=== PATIENT | female | born 1995 | race African-American/Black ===

== ENCOUNTER 2020-01-30 11:36 | Day surgery (SDC) | payer MEDICAID, OTHER ==
[~2020-01-30] VITALS: Ht 160 cm; Wt 59.0 kg
[2020-01-30] VITALS (13 sets, daily range): BP systolic 107–151; BP diastolic 59–94
[~2020-01-30 11:36] MED LIST: NKM
[2020-01-30] MEDS ORDERED: Morphine Sulfate 4mg/ml Inj (IV USE ONLY) IVP ONE ×3 (11:45→16:00)
[2020-01-30] MEDS ORDERED: LORazepam Inj 2mg/ml 1ml IV ONE (12:00)
[2020-01-30 12:06] LABS: BASOPHILS % (AUTO) 1.7 % (0.0-2.0); EOSINOPHILS % (AUTO) 1.5 % (0.0-3.0); HEMATOCRIT 39.8 % (37.0-47.0); HEMOGLOBIN 12.7 G/DL (12.0-16.0); LYMPHOCYTES % (AUTO) 23.3 % (20.0-45.0); MEAN CORPUSCULAR VOLUME 94 FL (80-99); MONOCYTES % (AUTO) 7.2 % (1.0-10.0); NEUTROPHILS % (AUTO) 66.4 % (45.0-75.0); PLATELET COUNT 190 K/UL (150-450); RED BLOOD COUNT 4.24 M/UL (4.20-5.40); RED CELL DISTRIBUTION WIDTH 14.2 % (11.6-14.8); WHITE BLOOD COUNT 10.1 K/UL (4.8-10.8)
[2020-01-30 12:20] LABS: ANION GAP 13 mmol/L (5-15); BLOOD UREA NITROGEN 11 mg/dL (7-18); CALCIUM 9.4 MG/DL (8.5-10.1); CARBON DIOXIDE 21 MMOL/L (21-32); CHLORIDE 104 MMOL/L (98-107); POTASSIUM 4.2 MMOL/L (3.5-5.1); SODIUM 138 MMOL/L (136-145)
[2020-01-30 12:24] LABS: ALANINE AMINOTRANSFERASE 13 U/L (12-78); ALKALINE PHOSPHATASE 58 U/L (46-116); ASPARTATE AMINO TRANSFERASE 30 U/L (15-37); BILIRUBIN,TOTAL 0.4 MG/DL (0.2-1.0)
[2020-01-30] MEDS ORDERED: Omnipaque-300 100ml vial INJ PRN (13:00)
--- NOTE | 2020-01-30 13:23 | Emergency Room Report ---
History of Present Illness General Chief Complaint: Abdominal Pain Source: Patient Present Illness HPI 24-year-old female, very poor historian, here with abdominal pain and vaginal bleeding. Patient says that she had a positive test 1 week ago and says that today "something came out of my vagina. It is bleeding." Was not able to tell me how much blood. When the patient arrived in the emergency department she was running back and forth screaming "it is coming! I am bleeding!" Patient normal vital signs but said multiple times that she feels as though she is going to faint. She vomited one time on arrival nonbilious nonbloody. Denies headaches, vision changes, fevers, chills, chest pain, palpitations, shortness of breath. Allergies: Coded Allergies: No Known Allergies (Unverified , 03/10/14) COVID-19 Screening Contact w/high risk pt: No Experienced COVID-19 symptoms?: No COVID-19 Testing performed BEEF SKINNER: No Patient History Now: No Nursing Documentation-[facility] Past Medical History: No Stated History Hx Asthma: Yes Physical Exam Vital Signs Date Time Temp Pulse Resp B/P (MAP) Pulse Ox O2 Delivery O2 Flow Rate FiO2 01/30/20 11:37 97.5 82 18 151/82 (105) 98 Room Air Sp02 EP Interpretation: reviewed, normal General Appearance: alert, GCS 15, non-toxic, severe distress, other - In severe distress. Screaming, agitated, abusive toward staff and cursing Head: normocephalic, atraumatic Eyes: bilateral eye normal inspection, bilateral eye PERRL ENT: hearing grossly normal, normal pharynx, no angioedema, normal voice Neck: full range of motion, supple/symm/no masses Respiratory: chest non-tender, lungs clear, normal breath sounds, speaking full sentences Cardiovascular #1: regular rate, rhythm, no edema Cardiovascular #2: 2+ carotid (R), 2+ carotid (L), 2+ radial (R), 2+ radial (L) , 2+ dorsalis pedis (R), 2+ dorsalis pedis (L) Gastrointestinal: normal bowel sounds, non tender, soft, non-distended, no guarding, no rebound Rectal: deferred Genitourinary: normal inspection, no CVA tenderness, other - No active bleeding on external examination of the vagina Musculoskeletal: back normal, normal range of motion, calf tenderness, gait/ station normal, non-tender Neurologic: alert, motor strength/tone normal, sensory intact, responsive, speech normal Psychiatric: judgement/insight normal, memory normal, mood/affect normal, no suicidal/homicidal ideation Lymphatic: no adenopathy Medical Decision Making ER Course Laboratory Tests Test 01/30/20 11:55 White Blood Count 10.1 K/UL (4.8-10.8) Red Blood Count 4.24 M/UL (4.20-5.40) Hemoglobin 12.7 G/DL (12.0-16.0) Hematocrit 39.8 % (37.0-47.0) Mean Corpuscular Volume 94 FL (80-99) Mean Corpuscular Hemoglobin 30.0 PG (27.0-31.0) Mean Corpuscular Hemoglobin Concent 32.0 G/DL (32.0-36.0) Red Cell Distribution Width 14.2 % (11.6-14.8) Platelet Count 190 K/UL (150-450) Mean Platelet Volume 10.7 FL (6.5-10.1) H Neutrophils (%) (Auto) 66.4 % (45.0-75.0) Lymphocytes (%) (Auto) 23.3 % (20.0-45.0) Monocytes (%) (Auto) 7.2 % (1.0-10.0) Eosinophils (%) (Auto) 1.5 % (0.0-3.0) Basophils (%) (Auto) 1.7 % (0.0-2.0) Sodium Level 138 MMOL/L (136-145) Potassium Level 4.2 MMOL/L (3.5-5.1) Chloride Level 104 MMOL/L (98-107) Carbon Dioxide Level 21 MMOL/L (21-32) Anion Gap 13 mmol/L (5-15) Blood Urea Nitrogen 11 mg/dL (7-18) Creatinine 1.0 MG/DL (0.55-1.30) Estimated Glomerular Filtration Rate > 60 mL/min (>60) Glucose Level 93 MG/DL (74-106) Calcium Level 9.4 MG/DL (8.5-10.1) Total Bilirubin 0.4 MG/DL (0.2-1.0) Aspartate Amino Transferase (AST) 30 U/L (15-37) Alanine Aminotransferase (ALT) 13 U/L (12-78) Alkaline Phosphatase 58 U/L (46-116) Total Protein 8.0 G/DL (6.4-8.2) Albumin 4.0 G/DL (3.4-5.0) Globulin 4.0 g/dL Albumin/Globulin Ratio 1.0 (1.0-2.7) Lipase 248 U/L (73-393) EXAM: US Pelvis Transvaginal CLINICAL HISTORY: PAIN TECHNIQUE: Real-time transvaginal pelvic ultrasound with image documentation. Transvaginal imaging was used for better evaluation of the endometrium and adnexa. COMPARISON: None FINDINGS: Uterus: Measures 10.3 x 5.0 x 6.1 cm. No focal myometrial lesion. Endometrium measures 11.3 mm. No intrauterine identified. Right ovary: Measures 4.6 x 2.5 x 1.8 cm. Normal appearance with multiple follicles. Normal color Doppler flow. Left ovary: Measures 1.2 x 1.2 x 3.9 cm. Normal appearance with multiple follicles. Normal color Doppler flow. Other: No free fluid. No adnexal mass. IMPRESSION: No intrauterine identified. Please correlate with serial beta hCG measurements and short-term follow-up exam if clinically indicated. 24-year-old female here with abdominal pain and vaginal bleeding. Patient did not have any vaginal bleeding here in the emergency department. She was however screaming in pain and appeared incredibly anxious on arrival. She was hemodynamically stable. CBC and CMP largely unremarkable. Pelvic ultrasound did not reveal any acute abnormalities and did not reveal an intrauterine . Patient said that she had a positive test 1 week ago. She refused to give a urine sample and refused a pelvic exam. Currently waiting quantitative hCG. Also awaiting type and screen. Will undergo CT abdomen pelvis. Signed out to oncoming physician. Last Vital Signs Date Time Temp Pulse Resp B/P (MAP) Pulse Ox O2 Delivery O2 Flow Rate FiO2 01/30/20 11:37 97.5 82 18 151/82 (105) 98 Room Air Referrals: [facility],REFERRING (PCP) Timbo Garcia M.D. Jan 30, 2020 13:23
--- NOTE | 2020-01-30 14:13 | Diagnostic Imaging Report ---
EXAM: US Pelvis Transvaginal CLINICAL HISTORY: PAIN TECHNIQUE: Real-time transvaginal pelvic ultrasound with image documentation. Transvaginal imaging was used for better evaluation of the endometrium and adnexa. COMPARISON: None FINDINGS: Uterus: Measures 10.3 x 5.0 x 6.1 cm. No focal myometrial lesion. Endometrium measures 11.3 mm. No intrauterine identified. Right ovary: Measures 4.6 x 2.5 x 1.8 cm. Normal appearance with multiple follicles. Normal color Doppler flow. Left ovary: Measures 1.2 x 1.2 x 3.9 cm. Normal appearance with multiple follicles. Normal color Doppler flow. Other: No free fluid. No adnexal mass. IMPRESSION: No intrauterine identified. Please correlate with serial beta hCG measurements and short-term follow-up exam if clinically indicated.
--- NOTE | 2020-01-30 14:20 | Diagnostic Imaging Report ---
EXAM: US First Trimester , Transabdominal CLINICAL HISTORY: PAIN TECHNIQUE: Real-time transabdominal obstetrical ultrasound of the maternal pelvis and a first trimester with image documentation. COMPARISON: None FINDINGS: Uterus: Measures 10.3 x 5.0 x 6.1 cm. No focal myometrial lesion. Endometrium measures 11.3 mm. No intrauterine identified. Right ovary: Measures 4.6 x 2.5 x 1.8 cm. Normal appearance with multiple follicles. Normal color Doppler flow. Left ovary: Measures 1.2 x 1.2 x 3.9 cm. Normal appearance with multiple follicles. Normal color Doppler flow. Other: No free fluid. No adnexal mass. IMPRESSION: No intrauterine identified. Please correlate with serial beta hCG measurements and short-term follow-up exam if clinically indicated.
[2020-01-30 14:25] LABS: COLOR,URINE PALE YELLOW
[2020-01-30 14:26] LABS: APPEARANCE,URINE CLEAR; BILIRUBIN, URINE NEGATIVE (NEGATIVE); GLUCOSE, URINE (UA) NEGATIVE (NEGATIVE); KETONES,URINE 1+ (NEGATIVE); LEUKOCYTE ESTERASE ,URINE NEGATIVE (NEGATIVE); NITRITE,URINE NEGATIVE (NEGATIVE); PROTEIN,URINE 2+ (NEGATIVE); UROBILINOGEN,URINE NORMAL MG/DL (0.0-1.0)
--- NOTE | 2020-01-30 15:32 | Diagnostic Imaging Report ---
EXAM: CT Abdomen and Pelvis With Intravenous Contrast CLINICAL HISTORY: PAIN TECHNIQUE: Axial computed tomography images of the abdomen and pelvis with intravenous contrast. CTDI is 5.1 mGy and DLP is 271 mGy-cm. One or more of the following dose reduction techniques were used: automated exposure control, adjustment of the mA and/or kV according to patient size, use of iterative reconstruction technique. COMPARISON: None FINDINGS: Lung bases: Unremarkable. No mass. No consolidation. ABDOMEN: Liver: Mild focal fat along the falciform ligament. Gallbladder and bile ducts: Unremarkable. No calcified stones. No ductal dilation. Pancreas: Unremarkable. No mass. No ductal dilation. Spleen: Small splenule. Adrenals: Unremarkable. No mass. Kidneys and ureters: Excreting contrast in the renal collecting systems. No hydronephrosis. Stomach and bowel: Prominence of the wall of the stomach may be secondary to under distention versus gastritis. PELVIS: Appendix: Normal appendix. Bladder: Mild prominence of the bladder wall may be secondary to underdistention. Please correlate with urinalysis if concerned for cystitis. Reproductive: Follicles in the ovaries. ABDOMEN and PELVIS: Intraperitoneal space: Small amount of fluid in the posterior pelvis may be physiologic. No free air. Bones/joints: See above. Soft tissues: Unremarkable. Vasculature: Unremarkable. No abdominal aortic aneurysm. Lymph nodes: Unremarkable. No enlarged lymph nodes. IMPRESSION: 1. Prominence of the wall of the stomach may be secondary to under distention versus gastritis. 2. Mild prominence of the bladder wall may be secondary to underdistention. Please correlate with urinalysis if concerned for cystitis.
[2020-01-30] MEDS ORDERED: Ropivacaine 5mg/ml Vial 20ml INJ ONE (17:07)
--- NOTE | 2020-01-30 18:11 | General Progress Note ---
Progress Note Progress Note Full Stack Web Developer Attending Note Called in by er to operate on pt with rlq pain pt is a 24 yo woman with rlq pain for 3 days, however over the last day the pain was increasingly severe and worse. pt came to er with what was described by er as an acute abdomen. pt has since then received 3 doses of iv morphine of 4 mg. pt currently not in any pain and does not have an acute abdomen however pt states she was in absolute agony and desires to proceed with surgical evaluation and treatment. Ultrasound was normal besides an asymmetrically large right ovary of 4.6 cm in size to the left which was 2.5 cm in size. Er strongly believes the pt has an ovarian torsion despite blood flow to the ovary. pt stated she had a positive test 1 week ago , but bhcg today was negative. vss abdomen non tender and non distended in no acute distress at this point despite normal current exam and lack of ultrasound or ct evidence of pathology, er believes pt may have an ovarian torsion. pt will be consented for diagnostic laparoscopy and possible untwisting of the right ovary with possible right ovarian cystectomy and possible right salpinoophorectomy Chris Avendano M.D. Jan 30, 2020 18:11
--- NOTE | 2020-01-30 18:13 | Pre-Procedure Note/Attestation ---
Pre-Procedure Note/Attestation Complete Prior to Procedure Planned Procedure: right Procedure Narrative: diagnostic laparoscopy with right ovarian untwisting, possible right ovarian cystectomy and possible right salpingoophorectomy Indications for Procedure Pre-Operative Diagnosis: severe right lower quadrant pain, suspected ovarian torsion Attestation I attest that I discussed the nature of the procedure; its benefits; risks and complications; and alternatives (and the risks and benefits of such alternatives ), prior to the procedure, with the patient (or the patient's legal compliance representative). I attest that, if there was a reasonable possibility of needing a blood transfusion, the patient (or the patient's legal compliance representative) was given the [place] Department [employer] standardized written summary, pursuant to the [place] Blood Safety Act ([place] Health and Safety Code # 1645, as amended). I attest that I re-evaluated the patient just prior to the surgery and that there has been no change in the patient's H&P, except as documented below: Chris Avendano M.D. Jan 30, 2020 18:13
[2020-01-30] MEDS ORDERED: fentaNYL 100 mcg/2 mL IV ONE (18:24)
[2020-01-30] MEDS ORDERED: Rocuronium Bromide 50mg/5ml Inj IV ONE (18:25)
[2020-01-30] MEDS ORDERED: NS Irrig 1000ml ONE (18:30)
[2020-01-30] MEDS ORDERED: Sterile Water Irrig 1000ml IRRIG ONE (18:30)
[2020-01-30] MEDS ORDERED: LR 1000ml ONE (18:30)
--- NOTE | 2020-01-30 19:13 | Anethesia Preoperative Eval ---
Anesthesia Pre-op PMH/ROS General Date of Evaluation: Jan 30, 2020 Time of Evaluation: 18:00 ASA Score: ASA 4 Mallampati Score Class I : Soft palate, uvula, fauces, pillars visible Class II: Soft palate, uvula, fauces visible Class III: Soft palate, base of uvula visible Class IV: Only hard plate visible Mallampati Classification: Class I Allergies: Coded Allergies: No Known Allergies (Unverified , 03/10/14) Patient NPO?: Yes Anesthesia Pre-op Phys. Exam Physician Exam Last Vital Signs Date Time Temp Pulse Resp B/P (MAP) Pulse Ox O2 Delivery O2 Flow Rate FiO2 01/30/20 18:10 98.1 58 16 108/62 99 Room Air Airway Exam Mallampati Score: Class I Anesthesia Pre-op A/P Labs Hematology Test 01/30/20 11:55 White Blood Count 10.1 K/UL (4.8-10.8) Red Blood Count 4.24 M/UL (4.20-5.40) Hemoglobin 12.7 G/DL (12.0-16.0) Hematocrit 39.8 % (37.0-47.0) Mean Corpuscular Volume 94 FL (80-99) Mean Corpuscular Hemoglobin 30.0 PG (27.0-31.0) Mean Corpuscular Hemoglobin Concent 32.0 G/DL (32.0-36.0) Red Cell Distribution Width 14.2 % (11.6-14.8) Platelet Count 190 K/UL (150-450) Mean Platelet Volume 10.7 FL (6.5-10.1) H Neutrophils (%) (Auto) 66.4 % (45.0-75.0) Lymphocytes (%) (Auto) 23.3 % (20.0-45.0) Monocytes (%) (Auto) 7.2 % (1.0-10.0) Eosinophils (%) (Auto) 1.5 % (0.0-3.0) Basophils (%) (Auto) 1.7 % (0.0-2.0) Chemistry Test 01/30/20 11:55 Sodium Level 138 MMOL/L (136-145) Potassium Level 4.2 MMOL/L (3.5-5.1) Chloride Level 104 MMOL/L (98-107) Carbon Dioxide Level 21 MMOL/L (21-32) Anion Gap 13 mmol/L (5-15) Blood Urea Nitrogen 11 mg/dL (7-18) Creatinine 1.0 MG/DL (0.55-1.30) Estimat Glomerular Filtration Rate > 60 mL/min (>60) Glucose Level 93 MG/DL (74-106) Calcium Level 9.4 MG/DL (8.5-10.1) Total Bilirubin 0.4 MG/DL (0.2-1.0) Aspartate Amino Transf (AST/SGOT) 30 U/L (15-37) Alanine Aminotransferase (ALT/SGPT) 13 U/L (12-78) Alkaline Phosphatase 58 U/L (46-116) Total Protein 8.0 G/DL (6.4-8.2) Albumin 4.0 G/DL (3.4-5.0) Globulin 4.0 g/dL Albumin/Globulin Ratio 1.0 (1.0-2.7) Lipase 248 U/L (73-393) Human Chorionic Gonadotropin, Quant 1 mIU/mL (1-6) Urine Test Test 01/30/20 14:00 Urine HCG, Qualitative Negative (NEGATIVE) Brandi Harden MD Jan 30, 2020 19:13
[2020-01-30] MEDS ORDERED: fentaNYL 100 mcg/2 mL IV PRN (19:15)
[2020-01-30] MEDS ORDERED: Hydromorphone 0.5mg/0.5ml inj IVP PRN (19:15)
[2020-01-30] MEDS ORDERED: Ketorolac 30mg Inj IV PRN (19:15)
[2020-01-30] MEDS ORDERED: Midazolam 2mg/2ml Inj IVP PRN (19:15)
--- NOTE | 2020-01-30 19:18 | Short Stay Surgery H&P ---
History of Present Illness History of Present Illness Chief Complaint right lower quadrant pain HPI Manuela Rasheed is a 24 year old female who was admitted on Jan 30, 2020 at 17:15 for Abdominal Pain. pt seen in the er with severe pain requiring 12 mg of morphine. ultrasound and ct did not show any ovarian pathology but clinically the pt was suspected to have a right ovarian torsion. Told pt she may have untorsed and that surgery may not be necessary however, she desires to go forward with diagnostic laparoscopy. pt consented for diagnostic laparoscopy with untwisting of the ovary, with possible right ovarian cystectomy and possible rso Patient History Allergies: Coded Allergies: No Known Allergies (Unverified , 03/10/14) Medication History Scheduled No Known Medications* (NKM - No Known Medications*), 0 ., (Reported) Physical Exam Vital Signs Last Vital Signs Date Time Temp Pulse Resp B/P (MAP) Pulse Ox O2 Delivery O2 Flow Rate FiO2 01/30/20 18:10 98.1 58 16 108/62 99 Room Air Labs Laboratory Tests Test 01/30/20 11:55 01/30/20 14:00 White Blood Count 10.1 K/UL (4.8-10.8) Red Blood Count 4.24 M/UL (4.20-5.40) Hemoglobin 12.7 G/DL (12.0-16.0) Hematocrit 39.8 % (37.0-47.0) Mean Corpuscular Volume 94 FL (80-99) Mean Corpuscular Hemoglobin 30.0 PG (27.0-31.0) Mean Corpuscular Hemoglobin Concent 32.0 G/DL (32.0-36.0) Red Cell Distribution Width 14.2 % (11.6-14.8) Platelet Count 190 K/UL (150-450) Mean Platelet Volume 10.7 FL (6.5-10.1) H Neutrophils (%) (Auto) 66.4 % (45.0-75.0) Lymphocytes (%) (Auto) 23.3 % (20.0-45.0) Monocytes (%) (Auto) 7.2 % (1.0-10.0) Eosinophils (%) (Auto) 1.5 % (0.0-3.0) Basophils (%) (Auto) 1.7 % (0.0-2.0) Sodium Level 138 MMOL/L (136-145) Potassium Level 4.2 MMOL/L (3.5-5.1) Chloride Level 104 MMOL/L (98-107) Carbon Dioxide Level 21 MMOL/L (21-32) Anion Gap 13 mmol/L (5-15) Blood Urea Nitrogen 11 mg/dL (7-18) Creatinine 1.0 MG/DL (0.55-1.30) Estimat Glomerular Filtration Rate > 60 mL/min (>60) Glucose Level 93 MG/DL (74-106) Calcium Level 9.4 MG/DL (8.5-10.1) Total Bilirubin 0.4 MG/DL (0.2-1.0) Aspartate Amino Transf (AST/SGOT) 30 U/L (15-37) Alanine Aminotransferase (ALT/SGPT) 13 U/L (12-78) Alkaline Phosphatase 58 U/L (46-116) Total Protein 8.0 G/DL (6.4-8.2) Albumin 4.0 G/DL (3.4-5.0) Globulin 4.0 g/dL Albumin/Globulin Ratio 1.0 (1.0-2.7) Lipase 248 U/L (73-393) Human Chorionic Gonadotropin, Quant 1 mIU/mL (1-6) Urine Color Pale yellow Urine Appearance Clear Urine pH 7.0 (4.5-8.0) Urine Specific [place] 1.005 (1.005-1.035) Urine Protein 2+ (NEGATIVE) H Urine Glucose (UA) Negative (NEGATIVE) Urine Ketones 1+ (NEGATIVE) H Urine Blood 4+ (NEGATIVE) H Urine Nitrite Negative (NEGATIVE) Urine Bilirubin Negative (NEGATIVE) Urine Urobilinogen Normal MG/DL (0.0-1.0) Urine Leukocyte Esterase Negative (NEGATIVE) Urine RBC 30-40 /HPF (0 - 2) H Urine WBC 0-2 /HPF (0 - 2) Urine Squamous Epithelial Cells Few /LPF (NONE/OCC) Urine Bacteria Few /HPF (NONE) Urine HCG, Qualitative Negative (NEGATIVE) Plan Attestation Are the patient's medical conditions optimized for surgery? Chris Avendano M.D. Jan 30, 2020 19:18
[2020-01-30] MEDS ORDERED: HYDROcodone/Acetamin 10/325 tab ORAL PRN (19:30)
[2020-01-30] MEDS ORDERED: D5 1/2NS 1,000 ML IV SCH (19:30)
[2020-01-30] MEDS ORDERED: HYDROcodone/Acetamin 5/325 tab ORAL PRN (19:30)
--- NOTE | 2020-01-30 19:31 | Brief Operative Note ---
Immediate Post Operative Note Operative Note Chief Complaint: severe rlq pain Pre-op Diagnosis: severe right lower quadrant pain, suspected ovarian torsion Procedure: diagnostic laparoscopy Post-op Diagnosis: no pathology seen, no ovarian torsion Surgeon: paul Parts Counter Salesperson: libra Additional Surgeons: duncan Anesthesiologist: anne Anesthesia: general Specimen: none Complications: none Condition: stable Fluids: none Estimated Blood Loss: minimal Drains: none Packing: none Tourniquet time: 0 Implant(s) used?: No Chris Avendano M.D. Jan 30, 2020 19:31
--- NOTE | 2020-01-30 19:32 | Immediate Post-Op Evaluation ---
Immediate Post-Op Evalulation Immediate Post-Op Evalulation Procedure: diagnostic lap Date of Evaluation: Jan 30, 2020 Time of Evaluation: 19:32 Nausea: No Vomiting: No Brandi Harden MD Jan 30, 2020 19:32
--- NOTE | 2020-01-30 19:38 | Operative Note - PDOC ---
Operative Note Operative Note Date of Operation/Procedure: Jan 30, 2020 Chief Complaint: severe rlq pain Pre-op Diagnosis: severe right lower quadrant pain, suspected ovarian torsion Procedure: diagnostic laparoscopy Post-op Diagnosis: no pathology seen, no ovarian torsion Operative Findings: consistent w/pre-op dx studies, other Surgeon: paul Hvac Technician Residential: libra Additional Surgeons: duncan Anesthesiologist: anne Anesthesia: general Specimen: none Complications: none Condition: stable Fluids: none Estimated Blood Loss: minimal Drains: none Packing: none Tourniquet time: 0 Implant(s) used?: No Indications for Procedure Pt with acute abdomen and rlq pain. pt with suspected ovarian torsion Description of Procedure Pt was taken to the operating theater where general anesthesia was obtained. pt was prepped and draped in the normal sterile fashion. pt placed in the dorsal lithotomy position with the denise stirrups. acorn uterine manipulator was placed into the cervix. Marcaine was injected infraumbilically and a size 11 scalpel was used to incise the umbilicus and a veress needle was introduced. the abdomen was insufflated to a pressure of 15 mmhg. 5 mm trocar was placed and the camera was placed. another llq 5 mm port was placed in the same fashion. pt was placed in trendelenberg position and the bowel was swept superiorly. Normal uterus and adnexal was observed. there was no torsion. appendix was not visualized but overall the pelvis looked completely clean. All instruments were then removed and the gas was allowed to be released. the skin was reapproximated with 4-0 monocryl in a subcuticular fashion. Chris Avendano M.D. Jan 30, 2020 19:38
== END 2020-01-30 21:00 | disposition home or self-care (01) ==
LOC: EMR 12:02 → EDBEDREQ 16:48 → SDSOVERFLO 17:15 → UNDOADMOB 17:15 → SDS 17:15 → EDBEDREQSVC 17:36 → EDBEDREQ 17:36 → SDSOVERFLO 18:10 → SDS 21:00
DX: R10.31 Right lower quadrant pain (principal); R45.1 Restlessness and agitation; N93.9 Abnormal uterine and vaginal bleeding, unspecified
CPT/HCPCS: 36415; 49320; 74177; 76801; 76817; 80053; 81003; 81025; 83690; 84702; 85025; 86850; 86900; 86901; 94003; 96374; 96375; 96376; J2250; J2270; J2405; J2704; J2795; J3010; J7040; J7120; Q9965; U0002; Z7502; Z7512; 94150; 99291